=== PATIENT | male | born 1990 | race Caucasian/White ===

== ENCOUNTER 2020-01-01 11:59 | Emergency (ER) | payer MEDICAID, OTHER ==
[~2020-01-01] VITALS: Ht 177.8 cm; Wt 77.1 kg
[~2020-01-01 11:59] MED LIST: NAPR250T74
[2020-01-01 12:18] VITALS: BP 134/103
== END 2020-01-01 13:31 | disposition home or self-care (01) ==
LOC: ER 11:59
DX: R05 Cough (principal); J02.9 Acute pharyngitis, unspecified; R53.1 Weakness; Z20.828 Contact with and (suspected) exposure to other viral communicable diseases; Z87.891 Personal history of nicotine dependence
CPT/HCPCS: 71045; 99284; U0003

== ENCOUNTER 2020-08-28 22:04 | Emergency (ER) | payer MEDICAID, OTHER ==
[~2020-08-28] VITALS: Ht 175.3 cm; Wt 77.1 kg
[2020-08-28 23:50] VITALS: BP 125/68
[2020-08-29] MEDS ORDERED: NEOMYCIN-BACITRACIN-POLYM UNITDOSE PKG TOP OINT TOP ONE (00:45)
[2020-08-29] MEDS ORDERED: TETANUS-DIPTH-ACEL PERTUSSIS 0.5ML SYR Tdap IM ONE (00:45)
[2020-08-29] MEDS ORDERED: KETOROLAC TROMETH 60MG/2ML VIAL IM ONE (00:45)
== END 2020-08-29 01:14 | disposition home or self-care (01) ==
LOC: ER 22:04
DX: S51.812A Laceration without foreign body of left forearm, initial encounter (principal); S71.152A Open bite, left thigh, initial encounter; W54.0XXA Bitten by dog, initial encounter; Y93.89 Activity, other specified; Y92.89 Other specified places as the place of occurrence of the external cause; Y99.8 Other external cause status
CPT/HCPCS: 12002; 73090; 73552; 90471; 90715; 96372; 99284; J1885; J2001

== ENCOUNTER 2024-11-16 22:33 | Emergency (ER) | payer MEDICAID ==
[~2024-11-16] VITALS: Ht 177.8 cm; Wt 83.6 kg
--- NOTE | 2024-11-17 00:13 | ED.PDOC ---
General HPI Comments C/C of testicle discomfort s/p having inguinal hernia surgery 11/13/24. Pt states he noticed swelling around groin area. Upon Triage, noted bruising to left side of testicle. No erythema or edema. VSS. NKDA. Pt currently taking Keflex, and Colace as prescribed. Chief Complaint: Testicle Pain Time Seen by MD: 22:49 Primary Care Provider: NONE Reviewed notes: Nurses Notes, Medications, Allergies Allergies: Uncoded Allergies: COCONUT (Allergy, Mild, 10/17/10) Home Meds Reported Medications Naproxen (Naprosyn) 250 Mg Tab 01/28/11 Information Source: Patient Mode of Arrival: Ambulatory Past Medical History PAST MEDICAL HISTORY: Anxiety Family History Family History: Family hx of heart cesar Social History Smoker: Cigarettes, Greater Than 1 Pack/Day, Other Alcohol: Rarely Drugs: Marijuana Lives In: Home Constitutional: denies: chills, diaphoresis, fatigue, fever, malaise, sweats, weakness, others EENTM: denies: blurred vision, double vision, ear bleeding, ear discharge, ear drainage, ear pain, ear ringing, eye pain, eye redness, hearing loss, mouth pain, mouth swelling, nasal discharge, nose bleeding, nose congestion, nose pain, photophobia, tearing, throat pain, throat swelling, voice changes, others Respiratory: denies: cough, hemoptysis, orthopnea, SOB at rest, shortness of breath, SOB with excertion, stridor, wheezing, others Cardiovascular: denies: chest pain, dizzy spells, diaphoresis, Dyspnea on exertion, edema, irregular heart beat, left arm pain, lightheadedness, palpitations, PND, syncope, others Gastrointestinal: denies: abdomen distended, abdominal pain, blood streaked bowels, constipated, diarrhea, dysphagia, difficulty swallowing, hematemesis, melena, nausea, poor appetite, poor fluid intake, rectal bleeding, rectal pain, vomiting, others Genitourinary: denies: burning, dysuria, flank pain, frequency, hematuria, incontinence, penile discharge, penile sore, pain, testicle pain, testicle swelling, urgency, others Neurological: denies: dizziness, fainting, headache, left sided numbness, left sided weakness, numbness, paresthesia, pre-existing deficit, right sided numbnes s, right sided weakness, seizure, speech problems, tingling, tremors, weakness, others Musculoskeletal: denies: back pain, gout, joint pain, joint swelling, muscle pain, muscle stiffness, neck pain, others Integumetry: reports: bruises; denies: change in color, change in hair/nails, dryness, laceration, lesions, lumps, rash, wounds, others Allergic/Immunocompromised: denies: Difficulty Healing, Frequent Infections, Hives, Itching, others Hematologic/Lymphatic: denies: anemia, blood clots, easy bleeding, easy bruising, swollen glands, others Endocrine: denies: excessive hunger, excessive sweating, excessive thirst, excessive urination, flushing, intolerance to cold, intolerance to heat, unexplained weight gain, unexplained weight loss, others Psychiatric: denies: anxiety, bipolar disorder, depression, hopeless, panic disorder, schizophrenia, sleepless, suicidal, others Physical Exam General Appearance: No Apparent Distress, Normal HEENT: Pharynx Normal Neck: Full Range of Motion, Non-Tender Respiratory: Lungs Clear, No Respiratory Distress, Normal Breath Sounds Cardiovascular: No Murmur, Normal Peripheral Pulses, Regular Rate/Rhythm Breast Exam: Deferred Gastrointestinal: No Organomegaly, Non Tender, No Pulsatile Mass, Normal Bowel Sounds, Soft Genitalia: Deferred Pelvic: Deferred Rectal: Deferred Extremities: Normal capillary refill, Normal inspection, Normal range of motion, Non-tender, No pedal edema Musculoskeletal : Apperance: Normal Neurologic: Alert, No Motor Deficits, Normal Affect, Normal Mood, No Sensory Deficits Cerebellar Function: Normal Reflexes: Normal Skin: Bruises (Small patch of ecchymosis outside of left testicle over upper sec. no noted tenderness. No other ecchymosis noted no erythema open lesions dressing intact clean dry no noted drainage. ), Dry, Normal Color, Warm Lymphatic: No Adenopathy Was a procedure done? Was a procedure done?: No Differential Diagnosis Kidney stone (Female): N/A Urinary Problem (Male): Post op Complications X-Ray, Labs, Meds, VS Vital Signs Date Time Temp Pulse Resp B/P (MAP) Pulse Ox O2 Delivery O2 Flow Rate FiO2 11/17/24 00:20 98.2 62 18 108/75 (86) 99 98.2 11/16/24 22:33 98.9 54 17 96/68 (49) 99 98.9 X-Ray, Labs, Meds, VS Comment Patient states bruising has not improved reports no pain no discomfort with urination. Likely normal postsurgical bruising. Patient has a follow up with the surgeon this week advised to call the office on Tuesday and see if he can get an appointment sooner. Advised on ER return precautions patient indicates understanding and agrees with discharge plan of care. Time of 1ST Reevaluation: 23:08 Reevaluation 1ST: Unchanged Time of 2ND Reevaluation: 00:48 Reevaluation 2ND: Improved Patient Education/Counseling: Diagnosis, Treatment, Prognosis, Need For Follow Up Family Education/Counseling: Diagnosis, Treatment, Prognosis, Need For Follow Up Departure 1 Departure Time of Disposition: 00:50 Impression: Primary Impression: Postoperative ecchymosis Disposition: 01 HOME / SELF CARE / HOMELESS Condition: Stable Discharged With: Self Critical Care Note Critical Care Time?: No Stability Stability form required: MIQUEL Mckeon Nov 17, 2024 00:13
[2024-11-17 00:20] VITALS: BP 108/75; PULSE 62; RESP 18; TEMP 98.2; O2SAT 99
== END 2024-11-17 01:16 | disposition home or self-care (01) ==
LOC: ER 22:33
DX: L76.22 Postprocedural hemorrhage of skin and subcutaneous tissue following other procedure (principal); F17.210 Nicotine dependence, cigarettes, uncomplicated; F12.90 Cannabis use, unspecified, uncomplicated

== ENCOUNTER 2024-12-17 00:36 | Emergency (ER) | payer MEDICAID ==
[~2024-12-17] VITALS: Ht 177.8 cm; Wt 79.0 kg
[2024-12-17] MEDS ORDERED: BACDST PO (01:15)
--- NOTE | 2024-12-17 01:15 | ED.PDOC ---
History of Present Illness(SKN HPI Comments 34 year old male presents to ER for wound check. Patient states he noticed yellow drainage/redness localized to incision site of where he had left inguinal surgery on 11/13/24. He reports 10/13 tenderness to incision site of left groin without radiation. Denies use of medications for current symptoms and presents to ER ambulatory on arrival, with steady gait, in no distress with vitals stable. States he last followed-up with his surgeon Dr. Ta 4 days ago. Denies fever, body aches, chills, testicular pain, shortness of breath or any further symptoms/complaints Chief Complaint: Wound Check Time Seen by MD: 00:48 Primary Care Provider: NONE History of Present Illness: Nurses Notes, Medications, Allergies Allergies: Uncoded Allergies: COCONUT (Allergy, Mild, 10/17/10) Home Meds Active Scripts Sulfamethoxazole W/Trimethopri (Bactrim Ds Tablet) 1 Tab Tb, 1 TAB PO BID for 7 Days, #14 TAB 0 Refills Prov:MAIDA BLAKE 12/17/24 Reported Medications Naproxen (Naprosyn) 250 Mg Tab 01/28/11 Information Source: Patient Mode of Arrival: Ambulatory Tetanus: UTD Past Medical History PAST MEDICAL HISTORY: Anxiety Surgical History (Other): Left inguinal surgery - 11/13/24 Family History Family History: Family hx of heart cesar Social History Smoker: Cigarettes, Greater Than 1 Pack/Day Alcohol: Rarely Drugs: Marijuana Lives In: Home Constitutional: denies: chills, diaphoresis, fatigue, fever, malaise, sweats, weakness, others EENTM: denies: blurred vision, double vision, ear bleeding, ear discharge, ear drainage, ear pain, ear ringing, eye pain, eye redness, hearing loss, mouth pain, mouth swelling, nasal discharge, nose bleeding, nose congestion, nose pain, photophobia, tearing, throat pain, throat swelling, voice changes, others Respiratory: denies: cough, hemoptysis, orthopnea, SOB at rest, shortness of breath, SOB with excertion, stridor, wheezing, others Cardiovascular: denies: chest pain, dizzy spells, diaphoresis, Dyspnea on exertion, edema, irregular heart beat, left arm pain, lightheadedness, palpitations, PND, syncope, others Gastrointestinal: denies: abdomen distended, abdominal pain, blood streaked bowels, constipated, diarrhea, dysphagia, difficulty swallowing, hematemesis, melena, nausea, poor appetite, poor fluid intake, rectal bleeding, rectal pain, vomiting, others Genitourinary: denies: burning, dysuria, flank pain, frequency, hematuria, incontinence, penile discharge, penile sore, pain, testicle pain, testicle swelling, urgency, others Neurological: denies: dizziness, fainting, headache, left sided numbness, left sided weakness, numbness, paresthesia, pre-existing deficit, right sided numbness, right sided weakness, seizure, speech problems, tingling, tremors, weakness, others Musculoskeletal: denies: back pain, gout, joint pain, joint swelling, muscle pain, muscle stiffness, neck pain, others Integumetry: reports: others (As stated in HPI) Allergic/Immunocompromised: denies: Difficulty Healing, Frequent Infections, Hives, Itching, others Hematologic/Lymphatic: denies: anemia, blood clots, easy bleeding, easy bruising, swollen glands, others Endocrine: denies: excessive hunger, excessive sweating, excessive thirst, excessive urination, flushing, intolerance to cold, intolerance to heat, unexplained weight gain, unexplained weight loss, others Psychiatric: denies: anxiety, bipolar disorder, depression, hopeless, panic disorder, schizophrenia, sleepless, suicidal, others Physical Exam General Appearance: No Apparent Distress HEENT: PERRL/EOMI Neck: Full Range of Motion, Non-Tender, Normal Respiratory: Chest Non-Tender, Lungs Clear, No Accessory Muscle Use, No Respiratory Distress, Normal Breath Sounds Cardiovascular: No Murmur, No Gallop, Regular Rate/Rhythm Breast Exam: Deferred Gastrointestinal: Non Tender, No Pulsatile Mass, Soft Genitalia: Deferred Pelvic: Deferred Rectal: Deferred Extremities: No calf tenderness, Normal capillary refill, Normal range of motion Musculoskeletal : Extremity Location: Groin (Healing incision noted to left groin with minimal erythema surrounding wound edges. No fluctuance/drainage/red streaking noted. Pulses intact) Neurologic: Alert, long winder tender II-XII nml as Tested, No Motor Deficits, Normal Affect, Normal Mood, No Sensory Deficits Cerebellar Function: Normal Reflexes: Normal Skin: Dry, Warm Peripheral Pulses: 2+ femoral (R), 2+ femoral (L), 2+ dorsalis pedis (R), 2+ dorsalis pedis (L), 2+ Radial (R), 2+ Radial (L), 2+ Brachial (R), 2+ Brachial (L) Lymphatic: No Adenopathy Was a procedure done? Was a procedure done?: No Sedation Sedation?: No Differential Diagnosis (INTG) Differential Diagnosis: Abrasion Differential Diagnosis: Abscess Differential Diagnosis: Neurovascular Injury Differential Diagnosis: Retained Foreign Body, Other (DVT) X-Ray, Labs, Meds, VS Vital Signs Date Time Temp Pulse Resp B/P (MAP) Pulse Ox O2 Delivery O2 Flow Rate FiO2 12/17/24 00:45 98.7 79 18 131/79 (96) 96 98.7 Patient neurovascularly intact Wound care/cleaning discussed and advised Smoking/cannabis cessation discussed and advised Advised to follow up with PCP and Dr. Ta in 1-2 days Patient verbalized understanding and agreeable with current plan of care Advised to return to ER immediately if symptoms worsen Time of 1ST Reevaluation: 00:54 Reevaluation 1ST: N/A Patient Education/Counseling: Diagnosis, Treatment, Prognosis, Need For Follow Up Family Education/Counseling: No Family Present SEPSIS Sepsis Screen Date sepsis recognized/suspect: Dec 17, 2024 Time Sepsis recognized/suspect: 004 Recent Procedure: No On Antibiotic Therapy: No Respiratory Rate >20: No Heart Rate >90: No Temp<36 C (96.8 F) or >38.3 C: No SBP <90 or MAP <65 mmHG: No New Acute Mental Status Change: No Is the patient on CPAP, BIPAP,: No Vital Signs Date Time Temp Pulse Resp B/P (MAP) Pulse Ox O2 Delivery O2 Flow Rate FiO2 12/17/24 00:45 98.7 79 18 131/79 (96) 96 98.7 Departure 1 Departure Time of Disposition: 01:12 Impression: Primary Impression: Cellulitis of left groin Disposition: HOME / SELF CARE / HOMELESS Condition: Stable e-Prescriptions Sulfamethoxazole W/Trimethopri (Bactrim Ds Tablet) 1 Tab Tb 1 TAB PO BID for 7 Days, #14 TAB 0 Refills Prov: MAIDA BLAKE 12/17/24 Discharged With: Self Critical Care Note Critical Care Time?: No Stability Stability form required: No Heart Score Heart Score: Heart Score Response (Comments) Value History N/A 0 EKG N/A 0 Age N/A 0 Risk Factors N/A 0 Troponin N/A 0 Total 0 MAIDA BLAKE Dec 17, 2024 01:15
[2024-12-17 01:20] VITALS: BP 130/79; PULSE 81; RESP 16; TEMP 98.5; O2SAT 97
== END 2024-12-17 01:20 | disposition home or self-care (01) ==
LOC: ER 00:36
DX: L03.314 Cellulitis of groin (principal); F41.9 Anxiety disorder, unspecified; F17.210 Nicotine dependence, cigarettes, uncomplicated